=== PATIENT | male | born 1970 | race Caucasian/White ===

== ENCOUNTER 2022-01-14 20:30 | Emergency (ER) | payer SELFPAY ==
--- NOTE | ~2022-01-14 | XR_ITS ---
EXAMINATION: XR chest 1V portable Exam Date/Time: 01/14/2022 21:15 CDT HISTORY: chest pain Comparison: None. RESULT: Lines, tubes, and devices: Mediastinal vascular clips. Intact sternotomy wires.. Lungs and pleura: Left basilar scar/atelectasis, otherwise clear. Cardiomediastinal silhouette: Stable. Other: No acute osseous or upper abdominal finding. IMPRESSION: No acute cardiopulmonary process. Reviewed, dictated and finalized at location K.
[2022-01-14 20:33] VITALS: BP 145/93; PULSE 89; RESP 22; TEMP 36.7; O2SAT 97
--- NOTE | 2022-01-14 20:54 | ECG_ITS ---
Measurements Intervals [place] Rate: 88 P: 78 WA: 153 QRS: 91 QRSD: 89 T: 90 QT: 376 QTc: 455 Interpretive Statements SINUS RHYTHM POSSIBLE LEFT ATRIAL ENLARGEMENT VOLTAGE CRITERIA FOR LVH MINIMAL Q WAVES- INFERIOR LEADS BORDERLINE ST-T WAVE ABNORMALITY- ANTEROLAT/HIGH LAT LEADS BASELINE ARTIFACT- V4-V6 BORDERLINE ECG NO PREVIOUS ECG AVAILABLE FOR COMPARISON Electronically Signed On 01-15-2022 8:14:11 CDT by Saeid Rain D.O.
[2022-01-14 21:00] VITALS: BP 134/83; PULSE 86; RESP 18; O2SAT 94
[2022-01-14 21:07] LABS: Add Urine Microscopic? YES; Appearance Urine Clear (Clear); Bilirubin Urine Negative (Negative); Blood Urine 1+ (Negative); Color Urine Light Yellow (Yellow); Glucose Urine UA Trace (Negative); Ketones Urine Negative (Negative); Leukocyte Esterase Ur Negative (Negative); Nitrate Urine Negative (Negative); Protein Urine 2+ (Negative); Urobilinogen Urine 0.2 mg/dL (0.2-1.0)
--- NOTE | 2022-01-14 21:07 | PC.NURSE ---
pt refusing lab work, per lab personnel
[2022-01-14 21:11] LABS: Squamous Epithelial Cell Urine Rare /hpf (FEw); WBC Urine None seen /hpf (0-3)
[2022-01-14 21:12] LABS: Bacteria Urine Trace /hpf
[2022-01-14 21:15] VITALS: BP 143/102; PULSE 89; RESP 22; O2SAT 95
--- NOTE | 2022-01-14 21:45 | PC.NURSE ---
pt refusing to keep monitoring equipment on. pt removed telemetry leads, pulse oxygenation sensor and blood pressure cuff.
--- NOTE | 2022-01-14 22:17 | ED.CHESTPAIN ---
HPI - Chest Pain General Chief Complaint: Chest Pain Stated Complaint: amb Time Seen by Provider: 01/14/22 20:34 Source: patient and RN notes reviewed Mode of arrival: ambulatory Limitations: no limitations History of Present Illness MD complaint: chest pain Onset (ago): day(s) (2) Timing of current episode: episodic Prior episodes: No Onset: during rest and during exertion Pain location: substernal Pain radiation: none Severity: mild Pain scale (0-10): 4 Quality: aching, sharp and dull Relieving factors: nothing Exacerbating factors: exertion and inspiration Treatment prior to arrival: none Related Data Allergies Allergy/AdvReac Type Severity Reaction Status Date / Time No Known Allergies Allergy Verified 01/14/22 22:06 Review of Systems Review of Systems: All systems reviewed & are unremarkable except as noted in HPI and below Constitutional: Constitutional: Reports no additional constitutional complaints Eyes: Eyes: Reports no additional eye complaints ENT: Reports system reviewed and no additional complaints, except as documented Cardiovascular: Cardiovascular: Reports no additional cardiovascular complaints and Reports chest pain Respiratory: Respiratory: Reports no additional respiratory complaints Gastrointestinal: Gastrointestinal: Reports no additional gastrointestinal complaints Musculoskeletal: Musculoskeletal: Reports no additional musculoskeletal complaints Integumentary/Breasts: Skin/Breast: Reports system reviewed and no additional complaints, except as docu Neurologic: Reports system reviewed and no additional complaints, except as documented Psychiatric: Psychiatric: Reports no additional psychiatric complaints Endocrine: Endocrine: Reports no additional endocrine complaints Hematologic/Lymphatic: Hematologic/Lymphatic: Reports no additional hematologic/lymphatic complaints Allergic/Immunologic: Allergic/Immunologic: Reports no additional allergic/immunologic complaints PMFSH Past Medical History Medical History Atypical chest pain Costochondritis Exam Const: General: no acute distress Nutritional Appearance: well nourished Orientation/consciousness: patient oriented x3 Limitations: no limitations HENMT: Head: normal to inspection Ears: external ears normal, TM's normal bilaterally and EAC's normal General nose exam: Normal external nose present and Normal nares present Face and sinus: normal facial exam and sinuses nontender Mouth: Yes Normal oral and palatal mucosa present and Yes moist mucous membranes Teeth and gingiva: dentition normal Throat: posterior oropharynx normal Eyes: Conjunctivae: conjunctivae normal Pupils: Equal, round and reactive pupils present EOM: EOMs intact bilaterally Neck: Neck: normal visual inspection, no lymphadenopathy and no meningeal signs Chest: Chest palpation & inspection: normal inspection of the chest and tenderness (minimally tender sternum and costochondral joints. no acute redness, swell) sternum and costochondral junction Resp: Effort & Inspection: normal respiratory effort Auscultation: clear to auscultation bilaterally Cardio: Rate: regular rate Rhythm: regular rhythm GI: GI Palp: Yes Soft to palpation and No Tenderness to palpation present (GI) Auscultation: normal bowel sounds : General: Yes bladder normal to palpation and Yes no CVA tenderness Back/Spine/Pelvis: Back: no CVA tenderness Skin: General skin exam: normal color Rashes: no rashes Wounds: no wounds Neuro: General: patient oriented x3, moves all extremities, no meningeal signs, no focal motor deficits and CN's II-XI intact bilaterally Cranial nerves: Yes Equal, round and reactive pupils present and Yes Nystagmus not present Speech: normal speech Gait exam (Neuro): Normal gait present Extrem: General: normal to inspection and no pedal edema Psych: Mental Status: mental status grossly normal Affe
[2022-01-14] MEDS: MAG HYDROX/ALUMINUM HYD/SIMETH 30 ML, PHENobarb/HYOSCY/ATROPINE/SCOP 32.4 MG, LIDOCAINE... PO (22:46)
[2022-01-14] MEDS: IBUPROFEN 400 MG TABLET 800 MG PO (22:47)
[2022-01-14] MEDS: ASPIRIN 325 MG ENTERIC TABLET PO (22:51)
[2022-01-14 22:58] VITALS: BP 160/105; PULSE 84; RESP 20; O2SAT 95
[2022-01-15] MEDS: cloNIDine HCL 0.2 MG TABLET PO (00:02)
[2022-01-15 00:44] VITALS: BP 143/93; PULSE 77
--- NOTE | 2022-01-15 00:46 | PC.NURSE ---
pt self ambulated from room with personal belongs. pt signed discharge paperwork and acknowledged that two medication prescriptions were sent to [facility]. pt refused to take discharge packet and discharge paperwork.
[2022-01-15 00:50] VITALS: BP 143/93; PULSE 77; RESP 16; TEMP 37; O2SAT 77
== END 2022-01-15 00:51 | disposition home or self-care (01) ==
PROVIDERS: Emergency Provider Emergency Medicine
DX: R07.89 Other chest pain (principal); M94.0 Chondrocostal junction syndrome [Tietze]
CPT/HCPCS: 71045; 81001; 93005; 99283; A9270

== ENCOUNTER 2022-01-28 19:23 | Emergency (ER) | payer SELFPAY ==
--- NOTE | 2022-01-28 20:56 | PC.NURSE ---
2000-pt called for triage but no answer. will try again at later time
--- NOTE | 2022-01-28 21:09 | PC.NURSE ---
no answer when called again for triage
[2022-01-28 21:53] VITALS: BP 140/77; PULSE 86; RESP 18; TEMP 36.4; O2SAT 96
--- NOTE | 2022-01-28 21:58 | PC.NURSE ---
[id number]-pt comes to intake desk for triage at this time.
--- NOTE | 2022-01-28 22:08 | PC.NURSE ---
pt continues to refuse ekg after multiple requests. pt cursing and asks to leave ED. pt taken outside via wheelchair. locks x 2 secured on wheelchair. pt advised to come back it he wishes to be seen.
--- NOTE | 2022-01-28 22:10 | PC.NURSE ---
visitor reports that pt urinated on floor in rear of ED. Housekeeping notified
== END 2022-01-28 22:08 | disposition left against medical advice (07) ==
PROVIDERS: Emergency Provider Emergency Medicine
DX: R07.9 Chest pain, unspecified (principal)
CPT/HCPCS: 99199